=== PATIENT | female | born 1955 | race Caucasian/White ===

== ENCOUNTER 2018-02-05 14:45 | Emergency (ER) | payer BC ==
[2013-10-12 12:00] VITALS: O2SAT 99
[~2018-02-05] VITALS: Ht 170.2 cm; Wt 66.7 kg
[~2018-02-05 14:45] MED LIST: ALBUAER19 INH; CLR10 PO; DAPS5GEL2; FLUT0.0529; MONT1TAB3 PO; MULT-506 PO; ONABOTULINUMTOXINA; SIMV-151 PO; VLM5CL PO
[2018-02-05 14:53] VITALS: Ht 170.2 cm; Wt 66.7 kg
--- NOTE | 2018-02-05 15:30 | EMERGENCY ROOM VISIT NOTE ---
History Report prepared by Maryibayesha: Gricelda Falcon Under the Supervision of: Dr. Jossie Ventura D.O. First contact with patient: 15:11 Chief Complaint: CHEST PAIN Stated Complaint: CHEST PAIN, TIGHTNESS, SOB History of Present Illness The patient is a 62 year old female who presents to the Emergency Room with complaints of intermittent chest pain for the past 6 days. She states 6 days ago , she developed a headache, chest pain, shortness of breath, diaphoresis and weakness. She describes the pain as feeling like either a "squeezing pain" or a "stabbing pain". The pain is worsened by laying down flat. The patient reports she has experienced migraine headaches in the past, and her headache last week felt "like a horrible migraine". She went to [facility] ED 6 days ago, where she remained for 3 days and produced an "abnormal stress test". She states she has a known thoracic aortic aneurysm. She was told to follow up with her Doorperson, Dr. Arriaga, but when she called his office, was told she did not have an appointment and there was some sort of scheduling mishap. She spoke back and forth with the office several times, and was "told a different story each time". The patient followed up with her PCP today, Dr. Arriaza at [facility] in [place], and states Dr. Arriaza was able to contact Dr. Arriaga , who told her to come straight to the ED today. The patient rates her current pain as a 3/10 in severity. She believes she has been febrile. Source of History: patient Onset: 1515 Position: chest Symptom Intensity: 3/10 Quality: stabbing, other ("sqeezing") Timing: intermittent Associated Symptoms: + fevers, + headache, + diaphoresis, + chest pain, + SOB, + weakness Review of Systems See HPI for pertinent positives & negatives. A total of 10 systems reviewed and were otherwise negative. Past Medical & Surgical Medical Problems: (1) History of pneumonia (2) Hyperlipidemia (3) Hypothyroidism (4) Seasonal allergies Social History Smoking Status: Never Smoker Alcohol Use: occasionally Drug Use: none Marital Status: Housing Status: lives with family Occupation Status: retired Current/Historical Medications Scheduled Aspirin (Aspirin Ec), 81 MG PO QPM Betamethasone Dipropionate Aug (Diprolene Af), 1 APPLN TOP BID Botulinum Toxin Type A (Botox), 1 DOSE INJ [id number] Budesonide/Formoterol Fumarate (Symbicort 160/4.5 Inhaler ), 1 PUFFS INH BID Cetirizine (Zyrtec), 10 MG PO DAILY Fluticasone Propionate (Nasal) (Flonase Allergy Relief), 2 SPRAYS KRISTIE DAILY Gabapentin (Neurontin), 100 MG PO TID Levothyroxine Sodium (Synthroid), 12.5 MCG PO DAILY Linaclotide (Linzess), 290 MCG PO DAILY Metoprolol Succ (Toprol Xl) (Toprol-Xl), 12.5 MG PO DAILY Metronidazole (Topical) (Metrogel), 1 APPLN TOP QPM Montelukast Sodium (Singulair), 10 MG PO DAILY Ospemifene (Osphena), 60 MG PO DAILY Simvastatin (Zocor), 20 MG PO QPM Tiotropium [place] (Spiriva Respimat), 1 PUFF INH Q NOON [Proair Hfa], 2 PUFFS INH QID Scheduled PRN Diazepam (Valium), 5 MG PO Q8 PRN for Pain Allergies Coded Allergies: Succinylcholine (Verified Allergy, Severe, ANAPHYLAXIS MUSCLE WEAKNESS, ) hx of pseudocholinesterose paralized during a surgery Latex1 -Allergic Contact Dermititis (Verified Allergy, Mild, RASH, 02/05/18 ) Vancomycin (Verified Allergy, Unknown, UNKNOWN, 02/05/18) INFO FROM [employer] Erythromycin (Verified Adverse Reaction, Intermediate, MUSCLE WEAKNESS, ) Morphine (Verified Adverse Reaction, Intermediate, GI SYMPTOMS, 10/12/13) N/V Uncoded Allergies: ADHESIVE TAPE (Allergy, Mild, RASH, 02/05/18) INFO FROM [employer] Physical Exam Vital Signs Date Time Temp Pulse Resp B/P (MAP) Pulse Ox O2 Delivery O2 Flow Rate FiO2 02/05/18 18:39 36.8 88 21 139/88 96 02/05/18 16:08 84 02/05/18 16:00 85 22 141/96 95 Room Air 02/05/18 15:22 95 Room Air 02/05/18 14:53 36.8 83 20 141/84 98 Room Air Physical Exam GENERAL: alert, well appearing, well nourished, no distress, non-toxic EYE EXAM: normal conjunctiva, PERRL and EOM's grossly intact OROPHARYNX: no exudate, no erythema, lips, buccal mucosa, and tongue normal and mucous membranes are moist NECK: supple, no nuchal rigidity, no adenopathy, non-tender LUNGS: Clear to auscultation. Normal chest wall mechanics, no w/r/r HEART: 3/6 holosystolic ejection murmur, S1 normal and S2 normal ABDOMEN: abdomen soft, non-tender, normo-active bowel sounds, no masses, no rebound or guarding. BACK: Back is symmetrical on inspection and there is no deformity, no midline tenderness, no CVA tenderness. SKIN: no rashes and no bruising UPPER EXTREMITIES: upper extremities are grossly normal. FROM, nml pulses b/l LOWER EXTREMITIES: No pitting edema. FROM, nml pulses. NEURO EXAM: Normal sensorium, cranial nerves II-XII grossly intact, normal speech, no gross weakness of arms, no gross weakness of legs. Medical Decision & Procedures ER Provider Diagnostic Interpretation: Radiology results have been interpreted by the radiologist and reviewed by me. CT HEAD WITHOUT CONTRAST (CT) CLINICAL HISTORY: atypical headache COMPARISON STUDY: No previous studies for comparison. TECHNIQUE: Axial CT of the brain is performed from the vertex to the skull base. IV contrast was not administered for this examination. A dose lowering technique was utilized adhering to the principles of ALARA. CT DOSE: 537.48 mGy.cm FINDINGS: No intra or extra-axial mass lesions are visualized. There is no CT evidence of acute cortical infarction. There is no evidence of midline shift. There is no acute hemorrhage. No calvarial fractures are visualized. There are minor white matter hypodensities likely on a small vessel basis. There is no evidence of pathologic ventricular dilatation. There is no evidence of acute sinusitis IMPRESSION: No acute intracranial findings Electronically signed by: Miquel Gray M.D. 02/05/2018 6:08 PM CHEST ONE VIEW PORTABLE CLINICAL HISTORY: Atypical chest pain and shortness of breath COMPARISON STUDY: No previous studies for comparison. FINDINGS: The cardiac and mediastinal contours are normal. There is no evidence of focal pulmonary consolidation. There is no evidence of failure. No pleural effusions are visualized.[ Postsurgical changes involve the distal right clavicle. Slightly prominent left basal markings are felt related to technical factors. IMPRESSION: No active disease in the chest. Electronically signed by: Miquel Gray M.D. 02/05/2018 4:59 PM Laboratory Results 02/05/18 15:18 Red Blood Count 4.35, Mean Corpuscular Volume 92.2, Mean Corpuscular Hemoglobin 31.3, Mean Corpuscular Hemoglobin Concent 33.9, Mean Platelet Volume 10.4, Neutrophils (%) (Auto) 62.7, Lymphocytes (%) (Auto) 29.5, Monocytes (%) (Auto) 5.5, Eosinophils (%) (Auto) 1.5, Basophils (%) (Auto) 0.5, Neutrophils # (Auto) 4.68, Lymphocytes # (Auto) 2.20, Monocytes # (Auto) 0.41, Eosinophils # (Auto) 0.11, Basophils # (Auto) 0.04 02/05/18 15:18 Test 02/05/18 15:18 White Blood Count 7.46 K/uL (4.8-10.8) Red Blood Count 4.35 M/uL (4.2-5.4) Hemoglobin 13.6 g/dL (12.0-16.0) Hematocrit 40.1 % (37-47) Mean Corpuscular Volume 92.2 fL (80-100) Mean Corpuscular Hemoglobin 31.3 pg (25-34) Mean Corpuscular Hemoglobin Concent 33.9 g/dl (32-36) Platelet Count 176 K/uL (130-400) Mean Platelet Volume 10.4 fL (7.4-10.4) Neutrophils (%) (Auto) 62.7 % Lymphocytes (%) (Auto) 29.5 % Monocytes (%) (Auto) 5.5 % Eosinophils (%) (Auto) 1.5 % Basophils (%) (Auto) 0.5 % Neutrophils # (Auto) 4.68 K/uL (1.4-6.5) Lymphocytes # (Auto) 2.20 K/uL (1.2-3.4) Monocytes # (Auto) 0.41 K/uL (0.11-0.59) Eosinophils # (Auto) 0.11 K/uL (0-0.5) Basophils # (Auto) 0.04 K/uL (0-0.2) RDW Standard Deviation 43.9 fL (36.4-46.3) RDW Coefficient of Variation 13.0 % (11.5-14.5) Immature Granulocyte % (Auto) 0.3 % Immature Granulocyte # (Auto) 0.02 K/uL (0.00-0.02) Prothrombin Time 10.6 SECONDS (9.0-12.0) Prothromb Time International Ratio 1.0 (0.9-1.1) Anion Gap 10.0 mmol/L (3-11) Est Creatinine Clear Calc Drug Dose 66.1 ml/min Estimated GFR () 82.8 Estimated GFR (Non- 71.4 BUN/Creatinine Ratio 15.4 (10-20) Calcium Level 8.9 mg/dl (8.5-10.1) Magnesium Level 2.2 mg/dl (1.8-2.4) Total Bilirubin 1.0 mg/dl (0.2-1) Aspartate Amino Transf (AST/SGOT) 25 U/L (15-37) Alanine Aminotransferase (ALT/SGPT) 29 U/L (12-78) Alkaline Phosphatase 76 U/L (45-117) Troponin I < 0.015 ng/ml (0-0.045) Pro-B-Type Natriuretic Peptide 64 pg/ml (0-900) Total Protein 8.3 gm/dl (6.4-8.2) Albumin 4.1 gm/dl (3.4-5.0) Globulin 4.2 gm/dl (2.5-4.0) Albumin/Globulin Ratio 1.0 (0.9-2) Laboratory results per my review. Medications Administered Medications (Trade) Dose Ordered Sig/Aurelio Route Start Time Stop Time Status Last Admin Dose Admin Nitroglycerin (Nitroglycerin 2% Oint) 1 inch NOW ONCE EXT 02/05/18 15:45 02/05/18 15:46 DC 02/05/18 15:45 1 INCH Ketorolac Tromethamine (Toradol Inj) 30 mg NOW STAT IV 02/05/18 17:06 02/05/18 17:08 DC 02/05/18 17:06 30 MG Diazepam (Valium Tab) 5 mg NOW STAT PO 02/05/18 18:19 02/05/18 18:20 DC 02/05/18 18:00 5 MG ECG Per My Interpretation Indication: chest pain Rate (beats per minute): 87 Rhythm: sinus rhythm Findings: no acute ischemic change, no ectopy, other (normal axis, normal intervals) ED Course 1516: The patient was evaluated in room C8. A complete history and physical exam was performed. 1532: I discussed the patients case with Dr. Arriaga, [facility]. He recommends I track down her CT angio records and give the patient Nitro paste as needed. The patient will be further evaluated. 1545: Nitroglycerin 2% 1 inch EXT. 1625: Dr. Arriaga informed me he has evaluated the patient and feels she is fine to go home. He has explained her discharge instructions to her. 1706: Toradol 30 mg IV. 1815: I reevaluated the patient. She is feeling much better. I discussed her results and discharge instructions and she verbalized complete understanding and agreement. 181: Valium 5 mg PO. Medical Decision Differential diagnoses includes but is not limited to acute coronary syndrome, myocardial infarction, pericarditis, pulmonary embolus, aortic dissection, pneumonia, pneumothorax, musculoskeletal, shingles, esophageal. Patient was evaluated in the ER and while orders placed I contacted Dr. Arriaga who came and saw the patient in the emergency room. Patient underwent a stat echo in the emergency room. Outpatient records were obtained. Dr. Arriaga has reviewed these as well as a stat echo bedside and feels patient does not require urgent cardiac catheterization. States her echo was normal, and the recent stress echo she had as an outpatient was normal also. The known ascending thoracic aneurysm is stable in size, and patient has no other symptoms concerning for aneurysmal leakage or dissection. I do not suspect occult infectious etiology. Given patient's worsening headache over the last several days a CT of her head was performed also, she does have a chronic history of headaches although felt the swelling was worse. No acute pathology was noted and patient was improved with medications and IV fluids here. Patient was comfortable with Dr. Arriaga's plan for discharge and close outpatient follow-up. Discussed with her symptoms to watch and return for, she verbalized understanding was agreeable with plan. I do not suspect ACS, dissection, PE, tamponade, no evidence of effusion or consolidation. Discussed with her possible contribution of GERD/gastritis to her symptoms and also more likely possibly musculoskeletal pain given that she recalls lifting up her toddler grandchild recently and possibly being kicked in the chest by them accidentally. Patient felt improved with anti-inflammatories and muscle relaxers. Discussed with her close follow-up with her family doctor also regarding a recheck of this. Patient well-appearing at discharge, ambulatory with a steady gait, tolerating p.o. Patient was hemodynamically stable throughout her time in the emergency room. Medication Reconcilliation Current Medication List: was personally reviewed by me Blood Pressure Screening Patient's blood pressure: Elevated blood pressure Blood pressure disposition: Referred to PCP Consults Time Called: 1529 Consulting Physician: [facility] Returned Call: 1531 I discussed the patients case with [facility]. He recommends I track down her CT angio records and give the patient Nitro paste as needed. The patient will be further evaluated. Impression Primary Impression: Chest pain Additional Impressions: Dyspnea Bicuspid aortic valve Headache Scribe Attestation The scribe's documentation has been prepared under my direction and personally reviewed by me in its entirety. I confirm that the note above accurately reflects all work, treatment, procedures, and medical decision making performed by me. Departure Information Dispostion Home / Self-Care Prescriptions Diazepam (Valium) 5 Mg Tab 5 MG PO Q8 Y for Pain, #10 TAB Prov: Jossie Ventura, DO 02/05/18 Referrals Petr Arriaza M.D. (PCP) Patient Instructions ED Chest Pain Costochondritis, ED Chest Pain NonCardiac, ED Dyspnea Shortness of Breath, Headache Pain, My [facility] Additional Instructions Please call follow-up with Dr. Arriaga in the office. Please continue your regular medications as prescribed. Please avoid any heavy lifting or moving until you are feeling better. Please drink plenty of water to stay well- hydrated. You may use Tylenol or ibuprofen as needed for pain, do not take ibuprofen on an empty stomach. You may use the muscle relaxer as prescribed, did not take it and drive or drink alcohol. If you develop worsening pain, increased trouble breathing, vomiting, dizziness, fevers or chills, worsening headache or vision changes, you have any other these return the emergency room. Problem Qualifiers Primary Impression: Chest pain Chest pain type: unspecified Qualified Codes: R07.9 - Chest pain, unspecified Additional Impressions: Dyspnea Dyspnea type: shortness of breath Qualified Codes: R06.02 - Shortness of breath Headache Headache type: unspecified Headache chronicity pattern: episodic headache Intractability: not intractable Qualified Codes: R51 - Headache
[2018-02-05] MEDS ORDERED: NITROGLYCERIN 2% OINTMENT 30GM TUBE EXT ONE (15:45)
[2018-02-05 15:46] LABS: BASO % 0.5 %; BASO ABS # 0.04 K/uL (0-0.2); EOS % 1.5 %; EOS ABS # 0.11 K/uL (0-0.5); HEMATOCRIT 40.1 % (37-47); HEMOGLOBIN 13.6 g/dL (12.0-16.0); IG# 0.02 K/uL (0.00-0.02); LYMPH % 29.5 %; MEAN CELL VOLUME 92.2 fL (80-100); MEAN CORPUSCULAR HEMOGLOBIN 31.3 pg (25-34); MEAN CORPUSCULAR HGB CONC 33.9 g/dl (32-36); MEAN PLATELET VOLUME 10.4 fL (7.4-10.4); MONO % 5.5 %; MONO ABS # 0.41 K/uL (0.11-0.59); NEUT % 62.7 %; NEUT ABS # 4.68 K/uL (1.4-6.5); PLATELET COUNT 176 K/uL (130-400); RED CELL DISTRIBUTION WIDTH SD 43.9 fL (36.4-46.3); WHITE BLOOD COUNT 7.46 K/uL (4.8-10.8)
[2018-02-05 16:18] LABS: ALBUMIN 4.1 gm/dl (3.4-5.0); ALKALINE PHOSPHATASE 76 U/L (45-117); ALT/SGPT 29 U/L (12-78); AST/SGOT 25 U/L (15-37); BLOOD UREA NITROGEN 14 mg/dl (7-18); CALCIUM 8.9 mg/dl (8.5-10.1); CARBON DIOXIDE 26 mmol/L (21-32); CREATININE 0.88 mg/dl (0.60-1.20); GLUCOSE 86 mg/dl (70-99); POTASSIUM 3.5 mmol/L (3.5-5.1); SODIUM 140 mmol/L (136-145); TOTAL PROTEIN 8.3 gm/dl (6.4-8.2)
[2018-02-05] MEDS ORDERED: ASPI81TA28 PO (16:45)
[2018-02-05] MEDS ORDERED: BTLAI INJ (16:45)
[2018-02-05] MEDS ORDERED: MONT1TAB3 PO (16:45)
[2018-02-05] MEDS ORDERED: TOPI25TA99 PO (16:45)
[2018-02-05] MEDS ORDERED: SIMV20TA2 PO (16:45)
[2018-02-05] MEDS ORDERED: CETI10TA84 PO (16:45)
[2018-02-05] MEDS ORDERED: FLUT0.15 NAE (16:45)
[2018-02-05] MEDS ORDERED: OSPE1TAB2 PO (16:45)
[2018-02-05] MEDS ORDERED: PROAIR HFA INH (16:45)
[2018-02-05] MEDS ORDERED: GABA-112 PO (16:45)
[2018-02-05] MEDS ORDERED: SYMIN160 INH (16:45)
[2018-02-05] MEDS ORDERED: LEVO25TA PO (16:45)
[2018-02-05] MEDS ORDERED: METR0.7527 TOP (16:45)
[2018-02-05] MEDS ORDERED: LINA1CAP2 PO (16:45)
[2018-02-05] MEDS ORDERED: METO25TA3 PO (16:58)
[2018-02-05] MEDS ORDERED: AUG0.05C12 TOP (17:00)
--- NOTE | 2018-02-05 17:00 | DIAGNOSTIC IMAGING REPORT ---
CHEST ONE VIEW PORTABLE CLINICAL HISTORY: Atypical chest pain and shortness of breath COMPARISON STUDY: No previous studies for comparison. FINDINGS: The cardiac and mediastinal contours are normal. There is no evidence of focal pulmonary consolidation. There is no evidence of failure. No pleural effusions are visualized.[ Postsurgical changes involve the distal right clavicle. Slightly prominent left basal markings are felt related to technical factors. IMPRESSION: No active disease in the chest. Electronically signed by: Miquel Gray M.D. 02/05/2018 4:59 PM Dictated Date/Time: 02/05/2018 4:58 PM
[2018-02-05] MEDS ORDERED: TIOT1SPR INH (17:04)
[2018-02-05] MEDS ORDERED: KETOROLAC TROMETHAMINE 30 MG/ML VIAL IV STA (17:06)
--- NOTE | 2018-02-05 17:18 | ECHOCARDIOGRAM REPORT ---
*NOTICE TO RECEIVING DEMOCRAT AGENCY This information is strictly Confidential and protected under [place] law. [place] law prohibits you from making any further disclosure of this information unless further disclosure is expressly permitted by the written consent of the person to whom it pertains or is authorized by law. A general authorization for the release of medical or other information is not sufficient for this purpose. Hospital accepts no responsibility if the information is made available to any other person, INCLUDING THE PATIENT. Interpretation Summary * Name: MADELINE QUIROZ Study Date: 02/05/2018 03:50 PM BP: 141/84 mmHg * Patient Location: [facility] HR: 79 * : 1955 (M/d/yyyy) Gender: Female Height: 67 in * Age: 62 yrs Ethnicity: [place] Weight: 147 lb * Ordering Physician: Duane Arriaga * Performed By: Norma Mariee RDCS * * Reason For Study: Chest Pain * BSA: 1.8 m2 * -- Conclusions -- * Normal LV chamber size with mild conecntric LVH. * Normal LV systolic function, EF 60-65%. * No segmental left ventricular wall motion abnormalities are noted. * Grade II diastolic dysfunction. * Bicuspid aortic valve, mildly calcified with moderate stenosis and mild regurgitation. * Mild tricuspid regurgitation. * Mild enlargement of ascending aorta. Procedure Details * A complete two-dimensional transthoracic echocardiogram was performed (2D, M-mode, Doppler and color flow Doppler). Left Ventricle * The left ventricle is normal in size. * There is mild concentric left ventricular hypertrophy. * Ejection Fraction = 60-65%. * Left ventricular systolic function is normal. * No segmental left ventricular wall motion abnormalities are noted. * The left ventricular wall motion is normal. Right Ventricle * The right ventricular cavity size is normal (basal dimension <4.2 cm in right ventricular apical 4-chamber view). * The right ventricular systolic function is normal as assessed by tricuspid annular plane systolic excursion (TAPSE) (normal >1.5 cm). Atria * The left atrial size is normal. * Right atrial size is normal. * No ASD detected; PFO is not assessed. Mitral Valve * The mitral valve is normal in structure and function. Tricuspid Valve * The tricuspid valve anatomy is normal. * There is no tricuspid stenosis. * There is mild tricuspid regurgitation. Aortic Valve * The aortic valve is bicuspid. * Moderate valvular aortic stenosis. * Mild aortic regurgitation. Pulmonic Valve * The pulmonary valve is not well seen, but the Doppler examination is normal without significant regurgitation or stenosis. Great Vessels * The aortic root is normal size. * Mildly dilated ascending aorta. Pericardium/Pleural * There is no pericardial effusion. Left Ventricular Diastolic Function * Diastolic dysfunction, Grade II (pseudonormalization pattern). MMode 2D Measurements and Calculations IVSd 1.2 cm IVSs 1.4 cm LVIDd 3.8 cm LVIDs 2.4 cm LVPWd 1.4 cm LVPWs 1.5 cm IVS/LVPW 0.91 FS 36.9 % EDV(Teich) 62.4 ml ESV(Teich) 20.3 ml EF(Teich) 67.5 % EDV(cubed) 55.4 ml ESV(cubed) 13.9 ml EF(cubed) 74.9 % % IVS thick 15.9 % % LVPW thick 12.2 % LV mass(C)d 176.5 grams LV mass(C)dI 99.5 grams/m\S\2 LV mass(C)s 119.9 grams LV mass(C)sI 67.6 grams/m\S\2 SV(Teich) 42.1 ml SI(Teich) 23.8 ml/m\S\2 SV(cubed) 41.5 ml SI(cubed) 23.4 ml/m\S\2 Ao root diam 3.3 cm Ao root area 8.3 cm\S\2 ACS 1.3 cm LA dimension 2.5 cm asc Aorta Diam 4.1 cm LA/Ao 0.77 LVOT diam 2.1 cm LVOT area 3.3 cm\S\2 LVAd ap4 27.5 cm\S\2 LVLd ap4 7.9 cm EDV(MOD-sp4) 79.3 ml EDV(sp4-el) 81.6 ml LVAs ap4 16.0 cm\S\2 LVLs ap4 6.6 cm ESV(MOD-sp4) 33.2 ml ESV(sp4-el) 32.7 ml EF(MOD-sp4) 58.2 % EF(sp4-el) 59.9 % LVAd ap2 29.4 cm\S\2 LVLd ap2 8.2 cm EDV(MOD-sp2) 87.4 ml EDV(sp2-el) 89.9 ml LVAs ap2 17.4 cm\S\2 LVLs ap2 6.6 cm ESV(MOD-sp2) 38.6 ml ESV(sp2-el) 38.8 ml EF(MOD-sp2) 55.8 % EF(sp2-el) 56.8 % LVLd %diff 3.6 % EDV(MOD-bp) 85.8 ml LVLs %diff -0.78 % ESV(MOD-bp) 35.8 ml EF(MOD-bp) 58.3 % SV(MOD-sp4) 46.2 ml SI(MOD-sp4) 26.0 ml/m\S\2 SV(MOD-sp2) 48.8 ml SI(MOD-sp2) 27.5 ml/m\S\2 SV(MOD-bp) 50.1 ml SI(MOD-bp) 28.2 ml/m\S\2 SV(sp4-el) 48.9 ml SI(sp4-el) 27.6 ml/m\S\2 SV(sp2-el) 51.1 ml SI(sp2-el) 28.8 ml/m\S\2 Doppler Measurements and Calculations MV E max kd 102.5 cm/sec MV A max kd 84.1 cm/sec MV E/A 1.2 MV dec time 0.19 sec Ao V2 max 275.4 cm/sec Ao max PG 30.4 mmHg Ao max PG (full) 28.2 mmHg Ao V2 mean 184.7 cm/sec Ao mean PG 16.0 mmHg Ao mean PG (full) 14.9 mmHg Ao V2 VTI 52.1 cm JUAREZ(I,A) 1.1 cm\S\2 JUAREZ(I,D) 1.1 cm\S\2 JUAREZ(V,A) 0.90 cm\S\2 JUAREZ(V,D) 0.90 cm\S\2 AI max kd 311.9 cm/sec AI max PG 38.9 mmHg AI dec slope 208.7 cm/sec\S\2 AI P1/2t 437.7 msec LV V1 max PG 2.2 mmHg LV V1 mean PG 1.1 mmHg LV V1 max 74.1 cm/sec LV V1 mean 47.9 cm/sec LV V1 VTI 17.1 cm SV(Ao) 433.4 ml SI(Ao) 244.3 ml/m\S\2 SV(LVOT) 57.1 ml SI(LVOT) 32.2 ml/m\S\2 PA V2 max 71.6 cm/sec PA max PG 2.1 mmHg PI max kd 141.5 cm/sec PI max PG 8.0 mmHg PI dec slope 205.3 cm/sec\S\2 PI P1/2t 201.9 msec TR max kd 160.1 cm/sec
--- NOTE | 2018-02-05 18:08 | DIAGNOSTIC IMAGING REPORT ---
CT HEAD WITHOUT CONTRAST (CT) CLINICAL HISTORY: atypical headache COMPARISON STUDY: No previous studies for comparison. TECHNIQUE: Axial CT of the brain is performed from the vertex to the skull base. IV contrast was not administered for this examination. A dose lowering technique was utilized adhering to the principles of ALARA. CT DOSE: 537.48 mGy.cm FINDINGS: No intra or extra-axial mass lesions are visualized. There is no CT evidence of acute cortical infarction. There is no evidence of midline shift. There is no acute hemorrhage. No calvarial fractures are visualized. There are minor white matter hypodensities likely on a small vessel basis. There is no evidence of pathologic ventricular dilatation. There is no evidence of acute sinusitis IMPRESSION: No acute intracranial findings Electronically signed by: Miquel Gray M.D. 02/05/2018 6:08 PM Dictated Date/Time: 02/05/2018 6:04 PM
[2018-02-05] MEDS ORDERED: DIAZEPAM 5MG TAB PO STA (18:19)
[2018-02-05] MEDS ORDERED: DIAZ-165 PO (18:23)
[2018-02-05 18:39] VITALS: BP 139/88; PULSE 88; TEMP 36.8; O2SAT 96
--- NOTE | 2018-02-05 20:03 | CARDIOLOGY CONSULTATION ---
DATE OF CONSULTATION: 02/05/2018 CONSULTATION REQUESTED BY: Dr. Ventura. REASON FOR CONSULTATION: Chest discomfort. HISTORY OF PRESENT ILLNESS: Mrs. Ramirez is a very pleasant 62-year-old woman who normally follows with myself and Lynn Hernandez as an outpatient. She presented to [facility] Emergency Department today from her primary care physician's office with a complaint of chest pain. The patient states that her chest pain started about 6 days ago. She states that she woke up and noticed that she was having some sharp stabbing left-sided chest pain. She states it initially occurred when she was at rest just sitting there and she described the pain as shooting through to her back. States it would come and go, but she is definitely able to find some tender spots on her chest that would reproduce this. Unfortunately the same time she started having some lightheaded spells and dizziness which she states is exactly similar to vertigo that she suffered in the past. She was admitted to [facility] a few days ago for chest discomfort. A stress testing reportedly showed a scar. There was most likely artifact. Echocardiogram was unremarkable and her aneurysm was stable by CTA and she was discharged to home. She was seen today by her primary care physician, Dr. Arriaza and had continued chest discomfort. He contacted me and I recommended ER evaluation at [facility], so I could see the patient emergently. Currently, she is feeling better at rest but her pain is reproduced during the echocardiogram. PAST SURGICAL HISTORY: 1. x2. 2. Partial hysterectomy. 3. Cystoscopy. 4. Laminectomy. 5. Foot surgery. MEDICAL ILLNESSES: 1. Bicuspid possible unicuspid aortic valve. 2. Ascending thoracic aortic aneurysm. 3. Asthma. 4. Stable pulmonary nodules. 5. Irritable bowel syndrome. 6. GERD. FAMILY HISTORY: She has a strong family history of premature coronary artery disease including multiple brothers and sisters. Denies any sudden cardiac . SOCIAL HISTORY: Denies any tobacco use. Drinks very rare alcohol. Denies any recreational drug use. She is . She lives at home with her . She has 3 grown children. She is a homemaker. REVIEW OF SYSTEMS: As per HPI, all other review of systems reviewed and negative at this time. ALLERGIES: 1. ADHESIVE TAPE. 2. . 3. LATEX. 4. MORPHINE. 5. SUCCINYLCHOLINE. 6. VANCOMYCIN. MEDICATIONS AN OUTPATIENT: 1. Aspirin 81 mg daily. 2. Metoprolol succinate 12.5 mg daily. 3. Simvastatin 20 mg daily. 4. Symbicort b.i.d. 5. Levoxyl daily. 6. Neurontin 3 times a day. PHYSICAL EXAMINATION: VITALS: Temperature 36.8, pulse 83, respiratory rate 12, blood pressure 141/84. GENERAL: Awake, alert, oriented x3, in no acute distress. HEENT: Normocephalic, atraumatic. Pupils equal, round, reactive to light and accommodation. Extraocular muscles intact. Anicteric sclerae. Moist mucous membranes. NECK: No JVD, no bruit. CARDIOVASCULAR: Regular. Positive S4. Normal S1 and S2. No S3. Harsh 4/6 mid-to-late systolic ejection murmur greatest at the right sternal border with radiation to bilateral carotids. No rubs. PULMONARY: Clear to auscultation bilaterally. No rales, rhonchi, or wheezing. ABDOMEN: Bowel sounds x4, soft. No rebound, guarding, tenderness. No organomegaly. EXTREMITIES: No clubbing, cyanosis or edema. +2 pedal pulses bilaterally. SKIN: Warm and dry. MUSCULOSKELETAL: Left 3rd, 4th, and 5th ribs stuck in exhalation with reproduction of her discomfort with palpation. IMPRESSION: Musculoskeletal chest discomfort secondary to somatic dysfunction of the left 3rd, 4th, and 5th ribs. RECOMMENDATIONS: It was my pleasure to see Mrs. Ramirez in reevaluation today. From a cardiac standpoint, she was counseled that her ribs do appear to be stuck in exhalation and I have given her stretching exercises to help relieve this. I have also recommended she use heat or ice packs as necessary for relief and she can also take ibuprofen 3 times a day with food. She is scheduled to see Lynn Hernandez on the and I recommend she keep that appointment. Otherwise, for her vertigo symptoms, I recommend she take meclizine 12.5 mg 3 times a day as needed and will place an outpatient physical therapy referral for Hallpike/Anastasiya maneuvers. Otherwise, the patient can be discharged from the Emergency Room.
== END 2018-02-05 18:40 | disposition home or self-care (01) ==
LOC: C.EDB 14:46 → C.EDC 18:40
DX: R07.9 Chest pain, unspecified (principal); R06.02 Shortness of breath; Q23.1 Congenital insufficiency of aortic valve; R51 Headache; E78.5 Hyperlipidemia, unspecified; E03.9 Hypothyroidism, unspecified; Z91.040 Latex allergy status; Z88.8 Allergy status to other drugs, medicaments and biological substances; Z88.5 Allergy status to narcotic agent